=== PATIENT | female | born 1960 | race Caucasian/White ===

== ENCOUNTER 2020-12-04 23:18 | Emergency (ER) | payer OTHER ==
[~2020-12-04] VITALS: Ht 170.2 cm; Wt 92.0 kg
[2020-12-04 23:20] VITALS: BP 162/101
--- NOTE | 2020-12-04 23:28 | NUR ---
Scant amount of brb at triage, direct pressure to abrasion applied. Bleeding stopped by the time triage done.
--- NOTE | 2020-12-04 23:54 | NUR ---
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
[2020-12-05] MEDS ORDERED: SILVER NITRATE STICK TP ONE (00:04)
== END 2020-12-05 01:36 | disposition home or self-care (01) ==
LOC: ED 12-05 01:35
DX: R04.0 Epistaxis (principal); Z48.01 Encounter for change or removal of surgical wound dressing
CPT/HCPCS: 99281